=== PATIENT | female | born 1960 ===

== ENCOUNTER 2017-02-07 10:28 | Outpatient (CLI) | payer OTHER ==
[2017-02-07 11:45] LABS: #Basophils 0.1 thou/uL (0.0-0.2); #Eosinphils 0.1 thou/uL (0.0-0.7); #Lymphocytes 1.6 thou/uL (1.20-3.40); #Monocytes 0.4 thou/uL (0.11-0.59); #Neutrophils 4.5 thou/uL (1.40-6.50); %Eosinophils 2.1 % (0.0-10.0); %Monocytes 6.3 % (0.0-10.0); %Neutrophils 66.6 % (42.0-75.0); Hemoglobin 13.4 g/dL (12.0-16.0); Mean Corpuscular HGB CONC 32.4 g/dL (32.0-36.0); Mean Corpuscular Hemoglobin 29.9 pg (27.0-31.0); Mean Corpuscular Volume 92.3 fl (81.0-99.0); Mean Platelet Volume 6.4 fL (7.4-10.4); Platelet Count 241 thou/uL (130-400); RBC Distribution Width 13.3 % (11.5-14.5); Red Blood Cell (RBC) Count 4.48 mill/uL (4.20-5.40); White Blood Cell (WBC) Count 6.7 thou/uL (4.8-10.8)
[2017-02-07 12:09] LABS: Hemoglobin A1c 5.1 % (4.0-6.0)
[2017-02-07 12:11] LABS: ALT (SGPT) 20 U/L (8-55); AST (SGOT) 21 U/L (5-34); Albumin 4.1 g/dL (3.5-5.0); Alkaline Phosphatase 106 U/L (40-150); Anion Gap 15 mmol/L (10-20); BUN (Urea Nitrogen) 22 mg/dL (9.8-20.1); Bilirubin, Direct 0.2 mg/dL (0.1-0.3); Bilirubin, Total 0.6 mg/dL (0.2-1.2); Calc. Creatinine Clearance 0 mL/min (70-130); Calcium 9.8 mg/dL (7.8-10.44); Carbon Dioxide 25 mmol/L (22-29); Cardiac Risk 2.1 (Less than 4.5); Chloride 107 mmol/L (98-107); Cholesterol 197 mg/dl (< 200 Desired); Estimated GFR-MDRD 72; Glucose 76 mg/dL (70-105); HDL Cholesterol 93 mg/dL (>60 Neg Risk); LDL Cholesterol, Calculated 86 mg/dL; Potassium 4.1 mmol/L (3.5-5.1); Protein, Total 7.2 g/dL (6.0-8.3); Sodium 143 mmol/L (136-145); Triglycerides 89 mg/dL (Less than 150)
== END 2017-02-07 10:29 | disposition home or self-care (01) ==
LOC: NAVSJIPCSP 10:28
PROVIDERS: ATTEND Family Medicine
DX: E03.9 Hypothyroidism, unspecified (principal); R00.2 Palpitations; Z79.899 Other long term (current) drug therapy
CPT/HCPCS: 80048; 80061; 80076; 83036; 84443; 85025

== ENCOUNTER 2018-01-10 17:22 | Outpatient (CLI) | payer OTHER ==
--- NOTE | 2018-01-10 17:43 | RAD ---
LEFT TIBIA AND FIBULA TWO VIEWS: 01/10/18 HISTORY: Contusion to left lower leg. There are no signs of fracture or dislocation. IMPRESSION: Negative left tib/fib. POS: [id number]
== END 2018-01-10 17:23 | disposition home or self-care (01) ==
LOC: NAV RAD 17:22
PROVIDERS: ATTEND Family Medicine
DX: S80.12XA Contusion of left lower leg, initial encounter (principal)